=== PATIENT | male | born 1930 | race Caucasian/White ===

== ENCOUNTER 2019-07-28 16:04 | Outpatient (CLI) | payer MEDICARE | END 2019-07-28 23:59 | disposition home or self-care (01) | LOC: RAD 16:04 | PROVIDERS: ATTEND Internal Medicine Interventional Cardiology | DX: J90 Pleural effusion, not elsewhere classified (principal); J98.11 Atelectasis; I51.7 Cardiomegaly; M47.814 Spondylosis without myelopathy or radiculopathy, thoracic region | CPT/HCPCS: 71046 ==

== ENCOUNTER 2019-07-28 16:20 | Outpatient (CLI) | payer MEDICARE, OTHER ==
[2019-07-28 17:49] LABS: BASOPHILS # (AUTO) 0.1 /CMM (0.0-0.2); BASOPHILS % (AUTO) 1.1 % (0.0-2.0); EOSINOPHILS % (AUTO) 2.1 % (0.0-6.0); HEMATOCRIT 35 % (39-51); HEMOGLOBIN 11.3 g/dL (13.5-17.5); LYMPHOCYTES # (AUTO) 1.4 /CMM (0.8-4.8); LYMPHOCYTES % (AUTO) 19.2 % (20.0-44.0); MEAN CORPUSCULAR HGB CONC 32 g/dl (31.0-36.0); MEAN CORPUSCULAR VOLUME 87 fL (80-96); MONOCYTES # (AUTO) 0.5 /CMM (0.1-1.30); MONOCYTES % (AUTO) 6.8 % (2.0-12.0); NEUTROPHILS # (AUTO) 5.3 /CMM (1.8-8.9); NEUTROPHILS % (AUTO) 70.8 % (43.0-81.0); PLATELET COUNT (AUTO) 246 /CMM (150-450); RED BLOOD CELL COUNT(AUTO) 4.04 MIL/uL (4.5-6.0); WHITE BLOOD COUNT (AUTO) 7.4 K/uL (4.3-11.0)
[2019-07-28 18:09] LABS: ALBUMIN 3.7 g/dL (3.4-5.0); BILIRUBIN,TOTAL 0.6 mg/dL (0.2-1.0); CALCIUM, SERUM 8.9 mg/dL (8.5-10.1); CREATININE 0.9 mg/dL (0.6-1.3); POTASSIUM 4.2 mmol/L (3.5-5.1); TOTAL PROTEIN, SERUM 7.9 g/dL (6.4-8.2)
== END 2019-07-28 23:59 | disposition home or self-care (01) ==
LOC: LAB 16:20
PROVIDERS: ATTEND Internal Medicine Interventional Cardiology
DX: I10 Essential (primary) hypertension (principal); R53.83 Other fatigue
CPT/HCPCS: 36415; 80053-TC; 85025-TC

== ENCOUNTER 2019-07-28 16:28 | Outpatient (CLI) | payer MEDICARE | END 2019-07-28 23:59 | disposition home or self-care (01) | LOC: VASLAB 16:28 | PROVIDERS: ATTEND Internal Medicine Interventional Cardiology | DX: M79.604 Pain in right leg (principal); M79.605 Pain in left leg; R22.43 Localized swelling, mass and lump, lower limb, bilateral | CPT/HCPCS: 36415; 71046; 80053-TC; 85025-TC; 93970-TC ==

== ENCOUNTER 2019-11-07 09:17 | Inpatient (IN) | payer MEDICARE, OTHER ==
[~2019-11-07] VITALS: Ht 175.3 cm; Wt 71.2 kg
--- NOTE | 2019-11-07 09:27 | NUR ---
PT BIB RELATIVE C/O SOB FOR 3 DAYS AND BILATERAL LEG SWELLING, PT IS AAOX4, NOT IN RESPIRATORY DISTRESS, HOOKED TO MONITOR, KEPT RESTED AND COMFORTABLE, WILL CONTINUE TO MONITOR.
[2019-11-07] MEDS ORDERED: FUROSEMIDE 40 MG/4 ML VIAL IV ONE (09:30)
--- NOTE | 2019-11-07 09:34 | NUR ---
AT BEDSIDE FOR EVAL.
[2019-11-07] MEDS ORDERED: FUROSEMIDE 40 MG/4 ML VIAL ONE (09:35)
--- NOTE | 2019-11-07 09:45 | NUR ---
IV LINE ESTABLISHED, BLOOD DRAWN AND SENT TO LAB.
[2019-11-07 09:57] LABS: BASOPHILS # (AUTO) 0.1 /CMM (0.0-0.2); BASOPHILS % (AUTO) 0.9 % (0.0-2.0); HEMATOCRIT 36 % (39-51); HEMOGLOBIN 11.9 g/dL (13.5-17.5); LYMPHOCYTES # (AUTO) 0.9 /CMM (0.8-4.8); LYMPHOCYTES % (AUTO) 8.6 % (20.0-44.0); MEAN CORPUSCULAR HGB CONC 33 g/dl (31.0-36.0); MEAN CORPUSCULAR VOLUME 89 fL (80-96); MONOCYTES # (AUTO) 0.4 /CMM (0.1-1.30); MONOCYTES % (AUTO) 4.4 % (2.0-12.0); NEUTROPHILS # (AUTO) 8.5 /CMM (1.8-8.9); NEUTROPHILS % (AUTO) 86.1 % (43.0-81.0); PLATELET COUNT (AUTO) 299 /CMM (150-450); RED BLOOD CELL COUNT(AUTO) 4.07 MIL/uL (4.5-6.0); WHITE BLOOD COUNT (AUTO) 9.9 K/uL (4.3-11.0)
[2019-11-07 10:04] LABS: POTASSIUM 4.4 mmol/L (3.5-5.1)
--- NOTE | 2019-11-07 10:08 | NUR ---
CAR CHASER AT BEDSIDE FOR XRAY.
--- NOTE | 2019-11-07 10:41 | NUR ---
CALLED NURSING SUP FOR TELE BED.
--- NOTE | 2019-11-07 10:45 | NUR ---
[facility]ED [facility].
[2019-11-07 11:02] LABS: APPEARANCE,URINE Clear (CLEAR); BILIRUBIN,URINE Negative (NEGATIVE); BLOOD, URINE Trace-intact Ery/uL (NEGATIVE); COLOR,URINE Yellow (YELLOW); KETONES,URINE Negative (NEGATIVE); LEUKOCYTE ESTERASE ,URINE Negative (NEGATIVE); NITRITE, URINE Negative (NEGATIVE); PH,URINE 5.5 (5.0-8.0); PROTEIN,URINE 100 mg/dl (NEGATIVE); UGLUCOSE Negative (NEGATIVE); UROBILINOGEN,URINE 0.2 EU/dL (0.2)
[2019-11-07 11:14] LABS: BACTERIA,URINE None seen /HPF (None Seen); RBC,URINE 0-2 /HPF (0-2); SQUAMOUS EPITHELIAL CELL,UR Few /HPF (None Seen); WBC,URINE 0-2 /HPF (0-3)
[2019-11-07] MEDS ORDERED: METO25TA4 PO (11:16)
[2019-11-07] MEDS ORDERED: ATOR20TA PO (11:16)
[2019-11-07] MEDS ORDERED: FINA5TAB11 PO (11:16)
[2019-11-07] MEDS ORDERED: FURO40TA5 PO (11:16)
[2019-11-07] MEDS ORDERED: FERR325T24 PO (11:16)
[2019-11-07] MEDS ORDERED: MECL-159 PO (11:16)
[2019-11-07] MEDS ORDERED: ERGO500014 PO (11:16)
[2019-11-07] MEDS ORDERED: DOXA4TAB19 PO (11:16)
[2019-11-07] MEDS ORDERED: ASPI-1152 PO (11:16)
[2019-11-07] MEDS ORDERED: CLOP75TA15 PO (11:16)
--- NOTE | 2019-11-07 11:54 | NUR ---
NURSING SUP GAVE TELE BED 117-2.
--- NOTE | 2019-11-07 11:58 | NUR ---
REPORT GIVEN TO EVGENY HOOVER FOR [facility].
--- NOTE | 2019-11-07 12:30 | NUR ---
MATH INTERVENTIONIST NOTES OPENING RECEIVED PATIENT A/OX 4 CHADIAN SPEAKER, FOLLOWS COMMANDS, DAUGHTER AT BED SIDE. VITALS WITHIN NORMAL LIMITS. NO SOB OR PAIN NOTED AT THIS TIME. IV PATENT. PATIENT REFUSED VACCINE AND PICTURES.SKIN INTACT NO OPEN WOUNDS NOTED. WILL CONTINUE TO MONITOR PATIENT.
[2019-11-07] MEDS: CLOPIDOGREL BISULFATE 75 MG TABLET PO SCH (13:00)
[2019-11-07] MEDS ORDERED: ERGOCALCIFEROL (VITAMIN D 2) 50,000 UNIT CAPSULE PO SCH (13:00)
[2019-11-07] MEDS: FUROSEMIDE 100 MG/10 ML VIAL IV SCH ×3 (13:53→21:49)
[2019-11-07] MEDS: FERROUS SULFATE (325 MG) 325 MG/TAB TABLET PO SCH (13:54)
[2019-11-07] MEDS: ASPIRIN EC 81 MG TABLET.DR PO SCH (13:54)
[2019-11-07] MEDS: FINASTERIDE (5 MG) 5 MG TABLET PO SCH (13:55)
[2019-11-07] MEDS: METOPROLOL SUCCINATE 25 MG TAB.SR.24H PO SCH ×2 (13:55→17:27)
[2019-11-07] MEDS: DOXAZOSIN MESYLATE (4 MG) 4 MG TABLET PO SCH (13:57)
[2019-11-07 14:10] LABS: FERRITIN 704 ng/mL (8-388)
[2019-11-07] MEDS: CHOLECALCIFEROL 1,000 UNIT TABLET (VIT D3) PO SCH (14:13)
[2019-11-07 15:06] LABS: IRON, SERUM 69 ug/dl (50-175); TOTAL IRON BINDING CAPACITY 311 ug/dl (250-450)
[2019-11-07] MEDS: ENOXAPARIN SODIUM 80 MG/0.8 ML DISP.SYRIN SQ SCH (15:57)
--- NOTE | 2019-11-07 19:20 | NUR ---
MACHINE MAINTENANCE NOTES PATIENT IN BED COMFORTABLE. DAUGHTER AT BEDSIDE, OBTAINED ORDER FROM DR MONTALVO AND NURSE PAPER INSERTER TO ALLOW THE DAUGHTER STAY OVERNIGHT. NO SOB OR DISCOMFORT NOTED AT THIS TIME. ALL NEEDS ATTENDED, MEDS ADMINISTRATED. CALL LIGHT WITHIN REACH , BED AT THE LOWEST POSITION LOCKED. ENDORSED TO VEHICLE TECHNICIAN NURSE FOR [facility].
[2019-11-07 20:00] VITALS: BP 111/57
[2019-11-07] MEDS: ATORVASTATIN 10 MG TABLET PO SCH (21:50)
[2019-11-08] VITALS (7 sets, daily range): BP systolic 96–117; BP diastolic 35–59
--- NOTE | 2019-11-08 06:58 | NUR ---
N NOTES RECEIVED PATIENT AWAKE IN BED, ALERT AND ORIENTED IN NO APPARENT DISTRESS, BREATHING EVEN AND UNLABORED. ROOM AIR WELL TOLERATED. NO COMPLAINT OF PAIN OR DISCOMFORT. VERBALLY ABLE TO COMMUNICATE NEEDS. KEPT CLEAN AND DRY. WILL CONTINUE TO MONITOR.
[2019-11-08 07:05] LABS: BASOPHILS # (AUTO) 0.1 /CMM (0.0-0.2); EOSINOPHILS % (AUTO) 1.2 % (0.0-6.0); HEMATOCRIT 31 % (39-51); HEMOGLOBIN 10.6 g/dL (13.5-17.5); LYMPHOCYTES # (AUTO) 1.7 /CMM (0.8-4.8); LYMPHOCYTES % (AUTO) 22.1 % (20.0-44.0); MEAN CORPUSCULAR HGB CONC 34 g/dl (31.0-36.0); MEAN CORPUSCULAR VOLUME 87 fL (80-96); MONOCYTES # (AUTO) 0.6 /CMM (0.1-1.30); MONOCYTES % (AUTO) 7.5 % (2.0-12.0); NEUTROPHILS # (AUTO) 5.4 /CMM (1.8-8.9); NEUTROPHILS % (AUTO) 68.2 % (43.0-81.0); PLATELET COUNT (AUTO) 256 /CMM (150-450); RED BLOOD CELL COUNT(AUTO) 3.59 MIL/uL (4.5-6.0); WHITE BLOOD COUNT (AUTO) 7.9 K/uL (4.3-11.0)
[2019-11-08 07:26] LABS: BILIRUBIN,TOTAL 0.8 mg/dL (0.2-1.0); CALCIUM, SERUM 8.6 mg/dL (8.5-10.1); MAGNESIUM 1.8 mg/dL (1.8-2.4); PHOSPHORUS 4.1 mg/dL (2.5-4.9); POTASSIUM 3.1 mmol/L (3.5-5.1); TOTAL PROTEIN, SERUM 6.5 g/dL (6.4-8.2)
[2019-11-08] MEDS: FINASTERIDE (5 MG) 5 MG TABLET PO SCH (08:28)
[2019-11-08] MEDS: CLOPIDOGREL BISULFATE 75 MG TABLET PO SCH (08:28)
[2019-11-08] MEDS: METOPROLOL SUCCINATE 25 MG TAB.SR.24H PO SCH ×2 (08:28→18:00)
[2019-11-08] MEDS: ASPIRIN EC 81 MG TABLET.DR PO SCH (08:28)
[2019-11-08] MEDS: DOXAZOSIN MESYLATE (4 MG) 4 MG TABLET PO SCH (08:29)
[2019-11-08] MEDS: CHOLECALCIFEROL 1,000 UNIT TABLET (VIT D3) PO SCH (08:29)
[2019-11-08] MEDS: FERROUS SULFATE (325 MG) 325 MG/TAB TABLET PO SCH (08:29)
[2019-11-08] MEDS: ENOXAPARIN SODIUM 80 MG/0.8 ML DISP.SYRIN SQ SCH (08:38)
[2019-11-08] MEDS: POTASSIUM CHLORIDE 20 MEQ TAB.PRT.SR PO SCH ×3 (10:25→13:01)
[2019-11-08] MEDS: FUROSEMIDE 40 MG/4 ML VIAL IV SCH ×3 (10:26→17:56)
--- NOTE | 2019-11-08 19:26 | NUR ---
RN NOTE: Bedside report was given to EVGENY Stern for continuity of care. Patient had been eating well 75-100% of his meals today. Able to walk in the unit with standby assistance from his family. Plan of care was discussed with the family at the bedside and no questions were asked at the moment.
[2019-11-08] MEDS: ATORVASTATIN 10 MG TABLET PO SCH (22:30)
[2019-11-09] VITALS: BP 111/47
[2019-11-09 04:00] VITALS: BP 126/46
--- NOTE | 2019-11-09 05:19 | NUR ---
rn notes resting comfortably in bed with son at bedside. no distress noted. breathing even and unlabored. on room air tolerating well. alert and oriented, verbally able to communicate needs, montserrat[place] speaking, son translates. ambulatory. no complaint of pain or discomfort. transferred room from [facility] to [facility] safely. complaint of knuckles swelling with pinpoint scab on each knuckle. picture taken. will endorse to next shift for continuity of care.
[2019-11-09 06:22] LABS: BASOPHILS # (AUTO) 0.1 /CMM (0.0-0.2); BASOPHILS % (AUTO) 1.3 % (0.0-2.0); HEMATOCRIT 34 % (39-51); HEMOGLOBIN 11.3 g/dL (13.5-17.5); LYMPHOCYTES # (AUTO) 1.8 /CMM (0.8-4.8); LYMPHOCYTES % (AUTO) 24.9 % (20.0-44.0); MEAN CORPUSCULAR HGB CONC 34 g/dl (31.0-36.0); MEAN CORPUSCULAR VOLUME 87 fL (80-96); MONOCYTES # (AUTO) 0.8 /CMM (0.1-1.30); MONOCYTES % (AUTO) 10.7 % (2.0-12.0); NEUTROPHILS # (AUTO) 4.3 /CMM (1.8-8.9); NEUTROPHILS % (AUTO) 61.1 % (43.0-81.0); PLATELET COUNT (AUTO) 259 /CMM (150-450); RED BLOOD CELL COUNT(AUTO) 3.87 MIL/uL (4.5-6.0); WHITE BLOOD COUNT (AUTO) 7.1 K/uL (4.3-11.0)
[2019-11-09 06:43] LABS: ALANINE AMINOTRANSFERASE 38 U/L (12-78); ALBUMIN 3.2 g/dL (3.4-5.0); ALKALINE PHOSPHATASE 146 U/L (46-116); ASPARTATE AMINOTRANSFERASE 29 U/L (15-37); BILIRUBIN,TOTAL 0.6 mg/dL (0.2-1.0); CALCIUM, SERUM 8.8 mg/dL (8.5-10.1); CARBON DIOXIDE 29 mmol/L (21-32); CHLORIDE 98 mmol/L (98-107); CREATININE 0.9 mg/dL (0.6-1.3); GLUCOSE 101 mg/dL (74-106); MAGNESIUM 1.9 mg/dL (1.8-2.4); PHOSPHORUS 4.2 mg/dL (2.5-4.9); POTASSIUM 3.4 mmol/L (3.5-5.1); SODIUM SERUM 137 mmol/L (136-145); TOTAL PROTEIN, SERUM 6.9 g/dL (6.4-8.2); UREA NITROGEN, BLOOD 27 mg/dL (7-18)
[2019-11-09 08:00] VITALS: BP 123/44
--- NOTE | 2019-11-09 08:00 | NUR ---
RN NOTES RECEIVED PATIENT IN THE BED A/O X3/4 [place]UG[place] SPEAKER, PATIENT TELE ON SR, ON ROOM AIR. REFUSED PAIN, NO ACUTE RESPIRATORY DISTRESS. ADMINISTERED SCHEDULED MEDICATION, IV ACCESS ON LEFT AC INTACT, V/S STABLE.PATIENT AMBULATORY. FAMILY NEXT TO THE BED. SEEN PATIENT BT AERIAL GUNNER Dr CROCKER. CONTINUED MONITORING.
[2019-11-09] MEDS ORDERED: POTASSIUM CHLORIDE 20 MEQ TAB.PRT.SR PO ONE ×2 (09:00)
[2019-11-09] MEDS: CLOPIDOGREL BISULFATE 75 MG TABLET PO SCH (09:28)
[2019-11-09] MEDS: FERROUS SULFATE (325 MG) 325 MG/TAB TABLET PO SCH (09:29)
[2019-11-09] MEDS: DOXAZOSIN MESYLATE (4 MG) 4 MG TABLET PO SCH (09:29)
[2019-11-09] MEDS: ASPIRIN EC 81 MG TABLET.DR PO SCH (09:30)
[2019-11-09] MEDS: METOPROLOL SUCCINATE 25 MG TAB.SR.24H PO SCH ×2 (09:30→17:00)
[2019-11-09] MEDS: FINASTERIDE (5 MG) 5 MG TABLET PO SCH (09:30)
[2019-11-09] MEDS: CHOLECALCIFEROL 1,000 UNIT TABLET (VIT D3) PO SCH (09:36)
[2019-11-09] MEDS: ENOXAPARIN SODIUM 40 MG/0.4 ML DISP.SYRIN SQ SCH (09:56)
[2019-11-09] MEDS ORDERED: POTASSIUM CHLORIDE 20 MEQ TAB.PRT.SR PO SCH (10:00)
[2019-11-09] MEDS: VALSARTAN 80 MG TABLET PO SCH (10:00)
--- NOTE | 2019-11-09 10:06 | NUR ---
rn notes per chip separator Dr. Chowdhury d/c tele to med/surge. continued monitoring.
[2019-11-09] MEDS: FUROSEMIDE 80 MG TABLET PO SCH (11:27)
[2019-11-09 12:00] VITALS: BP 119/47
[2019-11-09 16:00] VITALS: BP 104/57
--- NOTE | 2019-11-09 18:00 | NUR ---
RN NOTES PATIENT IN THE BED STABLE, V/S STABLE, HELD BP MEDICATION 1700 BECAUSE BP 108/57, PATIENT SELF CARE, REFUSED PAIN, TOLERATED DINNER WELL. CALL LIGHT WITHIN TO REACH. ENDORSED ONCOMING NURSE FOLLOW PLAN OF CARE.
[2019-11-09 20:00] VITALS: BP 138/55
[2019-11-09] MEDS: ATORVASTATIN 10 MG TABLET PO SCH (21:15)
[2019-11-10 04:00] VITALS: BP 117/48
[2019-11-10 07:31] LABS: BASOPHILS # (AUTO) 0.1 /CMM (0.0-0.2); BASOPHILS % (AUTO) 1.1 % (0.0-2.0); EOSINOPHILS % (AUTO) 2.6 % (0.0-6.0); HEMATOCRIT 35 % (39-51); HEMOGLOBIN 11.7 g/dL (13.5-17.5); LYMPHOCYTES # (AUTO) 1.2 /CMM (0.8-4.8); LYMPHOCYTES % (AUTO) 15.9 % (20.0-44.0); MEAN CORPUSCULAR HGB CONC 33 g/dl (31.0-36.0); MEAN CORPUSCULAR VOLUME 87 fL (80-96); MONOCYTES # (AUTO) 0.7 /CMM (0.1-1.30); MONOCYTES % (AUTO) 9.5 % (2.0-12.0); NEUTROPHILS # (AUTO) 5.3 /CMM (1.8-8.9); NEUTROPHILS % (AUTO) 70.9 % (43.0-81.0); PLATELET COUNT (AUTO) 273 /CMM (150-450); RED BLOOD CELL COUNT(AUTO) 4.04 MIL/uL (4.5-6.0); WHITE BLOOD COUNT (AUTO) 7.5 K/uL (4.3-11.0)
[2019-11-10 07:35] LABS: ALBUMIN 3.2 g/dL (3.4-5.0); BILIRUBIN,TOTAL 0.7 mg/dL (0.2-1.0); CREATININE 0.9 mg/dL (0.6-1.3); MAGNESIUM 2.2 mg/dL (1.8-2.4); PHOSPHORUS 3.7 mg/dL (2.5-4.9); POTASSIUM 4.2 mmol/L (3.5-5.1); TOTAL PROTEIN, SERUM 7.2 g/dL (6.4-8.2)
--- NOTE | 2019-11-10 07:35 | NUR ---
RN OPENING NOTES RECEIVED PATIENT IN BED, A/O X 4. VERBALLY RESPONSIVE AND ABLE TO MAKE NEEDS KNOWN. DENIES ANY PAIN OR DISCOMFORT AT THE MOMENT. NO SOB NOTED. IV ACCESS ON L AC #18 SALINE LOCKED. INTACT, PATENT AND FLUSHED WELL. NO SIGNS OF INFILTRATION NOTED. ON ROOM AIR SATURATING WELL. SAFETY PRECAUTIONS IN PLACED. CALL LIGHT WITHIN REACH. WILL CONTINUE TO MONITOR.
[2019-11-10 08:00] VITALS: BP 113/55
[2019-11-10 08:33] VITALS: BP 113/55
[2019-11-10] MEDS: FINASTERIDE (5 MG) 5 MG TABLET PO SCH (08:55)
[2019-11-10] MEDS: DOXAZOSIN MESYLATE (4 MG) 4 MG TABLET PO SCH (08:55)
[2019-11-10] MEDS: ASPIRIN EC 81 MG TABLET.DR PO SCH (08:55)
[2019-11-10] MEDS: CHOLECALCIFEROL 1,000 UNIT TABLET (VIT D3) PO SCH (08:57)
[2019-11-10 08:58] VITALS: BP 113/55
[2019-11-10] MEDS: FERROUS SULFATE (325 MG) 325 MG/TAB TABLET PO SCH (08:58)
[2019-11-10] MEDS: VALSARTAN 80 MG TABLET PO SCH (08:58)
[2019-11-10] MEDS: FUROSEMIDE 80 MG TABLET PO SCH (08:58)
[2019-11-10] MEDS: METOPROLOL SUCCINATE 25 MG TAB.SR.24H PO SCH (08:58)
[2019-11-10] MEDS: ENOXAPARIN SODIUM 40 MG/0.4 ML DISP.SYRIN SQ SCH (08:59)
[2019-11-10] MEDS ORDERED: IOHEXOL-350 100 ML VIAL IV ONE (10:29)
[2019-11-10] MEDS ORDERED: CT SWABBABLE VALVE TRANS SET 1 EA INFUS.SET MC ONE (10:29)
[2019-11-10] MEDS ORDERED: IV NS 0.9% 250 ML IV ONE (10:29)
[2019-11-10] MEDS ORDERED: FURO80TA3 PO (12:38)
[2019-11-10] MEDS ORDERED: TADA20TA43 PO (12:38)
--- NOTE | 2019-11-10 13:57 | NUR ---
MACHINE CLOTH EXAMINER NOTES PATIENT IN NO APPARENT DISTRESS NOTED. MEDICALLY STABLE. GETTING READY TO BE DISCHARGE. DISCHARGE PACKET PROVIDED AND INSTRUCTIONS GIVEN TO THE PATIENT AND . BELONGINGS RETUNED AND SIGNED THE BELONGINGS FORM. IV ACCESS AND ARM BAND REMOVED. ACCOMPANIED BY TRANSFER STATION ATTENDANT TO THE LOBBY VIA WHEELCHAIR.
== END 2019-11-10 13:57 | disposition home or self-care (01) | DRG 281 ==
LOC: ER 09:25 → TELE1 12:08 → MEDSG1 11-09 17:40
PROVIDERS: ADMIT Internal Medicine; ATTEND Internal Medicine
DX: I11.0 Hypertensive heart disease with heart failure (principal); I21.A1 Myocardial infarction type 2; N17.9 Acute kidney failure, unspecified; E78.5 Hyperlipidemia, unspecified; Z79.02 Long term (current) use of antithrombotics/antiplatelets; I27.20 Pulmonary hypertension, unspecified; I50.33 Acute on chronic diastolic (congestive) heart failure; Z98.890 Other specified postprocedural states; Z79.82 Long term (current) use of aspirin; Z79.899 Other long term (current) drug therapy; I08.2 Rheumatic disorders of both aortic and tricuspid valves; H81.10 Benign paroxysmal vertigo, unspecified ear; I70.0 Atherosclerosis of aorta; I25.10 Atherosclerotic heart disease of native coronary artery without angina pectoris; Z87.891 Personal history of nicotine dependence; N40.0 Benign prostatic hyperplasia without lower urinary tract symptoms; E11.51 Type 2 diabetes mellitus with diabetic peripheral angiopathy without gangrene
CPT/HCPCS: 36415; 71045-TC; 80048-TC; 80053-TC; 81000-TC; 82040-TC; 82728-TC; 83540-TC; 83735-TC; 84100-TC; 84484-TC; 85025-TC; 87081-TC; 93307-TC; 93970-TC; G0378; J1650; J1940; J7050; Q9967